=== PATIENT | male | born 2000 | race African-American/Black ===

== ENCOUNTER 2025-07-15 20:42 | Emergency (ER) | payer MEDICAID, SELFPAY ==
[2025-07-15 20:44] VITALS: BP 141/96
[2025-07-15 21:02] LABS: Hematocrit 44.6 % (39.0-52.0); Hemoglobin 15.2 g/dL (13.0-18.0); Mean Corp Hgb Conc. 34.1 g/dL (33.0-37.0); Mean Corpuscular Volume 79.6 fL (80.0-94.0); Nucleated Red Blood Cells % 0 % (-); Platelet Count 174 10^3/uL (130-400); Red Cell Dist. Width 11.9 % (11.5-14.5)
[2025-07-15 21:21] LABS: ALT (SGPT) 13 U/L (0-50); AST (SGOT) 22 U/L (17-59); Albumin 4.8 g/dl (3.5-5.0); Alkaline Phosphatase 51 U/L (38-126); Blood Urea Nitrogen 12 mg/dl (9-20); Calcium 10.0 mg/dl (8.4-10.2); Carbon Dioxide 29 mmol/L (22-30); Chloride 102 mmol/L (98-107); Glucose 100 mg/dl (70-99); Potassium 3.9 mmol/L (3.5-5.1); Sodium 139 mmol/L (135-145); Total Protein 8.3 g/dl (6.3-8.2); eGFR > 60.00
[2025-07-15 21:34] LABS: Urine Character Clear (Clear)
[2025-07-15 21:41] LABS: Urine Squamous Cell 0-2 /LPF (Few)
[2025-07-15 21:42] LABS: Urine White Cell 26-30 /HPF (0-5)
[2025-07-15] MEDS: TYLENOL 650 MG PO (22:10)
--- NOTE | 2025-07-16 00:23 | ED.GENMED ---
History of Present Illness
General
Chief Complaint: Headache
Time Seen by Provider: 07/16/25 00:09
Nursing documentation reviewed up to this point in time: agreed with
History of Present Illness
History of Present Illness:
25-year-old male presents to the ER for evaluation of 4 days of lower back discomfort along with dysuria and hesitancy with initiation of urination. Patient denies any recent sexual partners. He denies penile discharge. He denies testicular
discomfort. He also reports that his eyes have been red and irritated along with having a headache. He denies joint pain. Patient had been seen at another ER 2 days ago and had workup which he is able to show me on his phone-normal urinalysis,
negative GC and Chlamydia testing. He denies fever. He took some Tylenol on arrival to the ER today and had some improvement in his symptoms.
Review of Systems
Review of Systems
Allergies reviewed?: Yes
Phy Exam
Physical Exam
Physical Exam:
Patient is awake, alert, appears in no acute distress, head is NCAT, PERRL, EOMI mucous membranes moist, conjunctiva pink, BL sclera injected, no photophobia, heart regular rate and rhythm without murmurs or ectopy, lungs are clear to auscultation
without wheezes rales or rhonchi, no JVD, abdomen is soft and nontender on palpation, penis is circumcised, clear discharge noted at urethral meatus, no rashes seen, testicles are nontender on palpation, extremities without edema, GCS is 15
Course
Orders/Labs/Results
Orders:
Orders
07/15/25 20:56
Complete Blood Count/With Diff Urgent
Comprehensive Metabolic Panel Urgent
Urinalysis Reflex To Culture Urgent
Date Specimen was Collected: 07/15/25
Time Specimen was Collected: 20:50
Urine Microscopic Reflex Cult Urgent
Urine Culture Urgent
CINDY Source: U
Specimen Description:
Date Specimen was Collected: 07/15/25
Time Specimen was Collected: 20:50
07/15/25 22:07
Acetaminophen [Tylenol] 650 mg .ROUTE .STK-MED ONE
07/15/25 22:10
Acetaminophen [Tylenol] 650 mg PO NOW STA
07/16/25 00:19
CT Abd/pel Without Iv Or Oral Urgent
Comment:
Reason For Exam: dysuria, flank pain
07/16/25 00:24
Chlamydia/GC by PCR Urgent
CINDY Source: Urine
Specimen Description:
Source:: URETHRA
Date Specimen was Collected: 07/15/25
Time Specimen was Collected: 20:55
07/16/25 00:26
0.9% Sodium Chloride 1000 ml [Nss] 1,000 ml IV BOLUS
Ketorolac [Toradol] 15 mg IV NOW STA
07/16/25 00:33
Add On - Microbiology Urgent
Tests Added?: chlamydia/GC via PCR.
07/16/25 01:25
CefTRIAXone [Rocephin] 1,000 mg IV NOW STA
Doxycycline [Vibramycin] 100 mg PO NOW STA
Abnormal Lab Results
07/15/25
20:56
WBC 3.9 L 10^3/uL
(4.8-10.8)
MCV 79.6 L fL
(80.0-94.0)
MPV 11.2 H fL
(7.4-10.4)
Eosinophils % 9.4 H %
(0-6)
Glucose 100 H mg/dl
(70-99)
Total Protein 8.3 H g/dl
(6.3-8.2)
Ur Occult Blood Reflex 1+ A
(Negative)
Leukocyte Esterase Rfl 2+ A
(Negative)
Urine RBC 3-6 A /HPF
(0-2)
Urine WBC (Reflex) 26-30 A /HPF
(0-5)
Urine Bacteria (Reflex) Few A
(Negative)
Urine Albumin (Reflex) 2+ A
(Neg - Trace)
07/15/25 20:56
07/15/25 20:56
Urinalysis is concerning for infection, CBC reassuring, electrolytes within normal limits
Vital Signs
Initial and Last Documented VS:
Initial Vital Signs
Temp Pulse Resp BP Pulse Ox
98.2 F 71 16 141/96 98
07/15/25 20:44 07/15/25 20:44 07/15/25 20:44 07/15/25 20:44 07/15/25 20:44
Last Documented Vital Signs
Temp Pulse Resp BP Pulse Ox
98.2 F 71 16 141/96 98
07/15/25 20:44 07/15/25 20:44 07/15/25 20:44 07/15/25 20:44 07/16/25 00:24
MDM/Problems Addressed
Differential Diagnosis Includes:
Differential diagnosis to consider but not limited to GC chlamydia with Sherif's syndrome, urethritis, renal colic, viral syndrome along with other etiologies considered
*Pulse Oximetry
SaO2: 98
Oxygen Mode of Delivery: Room air
Patient hypoxic: no
*Critical Care Note
Total Time (30-74mins, 75-104mins- exclusive of procedures): Not Applicable
Update Note
Update Note:
I reviewed patient's test results with him from today along with previous ER visit. Urinalysis here looks very different than urinalysis obtained at outside hospital. I discussed with patient clinical concern specifically for chlamydia given his
overall picture. Will obtain additional sample from his urethra of discharge for evaluation. Will also obtain CT scan to rule out kidney stone given complaint of back pain in association with dysuria. Will give dose of Toradol along with IV
fluids. Patient agrees with plan at current.
0130: Patient resting comfortably. I reviewed all test results with patient and mom now present at bedside. I discussed with him still clinical concern for chlamydia as etiology of symptoms given urethritis and conjunctivitis. I discussed with
him treatment of same. Repeat GC chlamydia sent. I discussed with him strict return precautions should his symptoms fail to improve. Patient and mom feel comfortable with this plan and have no questions at the current time. Will give Rocephin
and first dose Doxy prior to discharge. They expressed understanding of need to complete treatment course.
ED Attending Note
-
Portions of this chart may have been created with voice recognition software.� Occasional wrong word or��sound alike� substitutions may have occurred due to the inherent limitations of voice recognition software.
Discharge Plan
Departure
Patient Disposition: Home (Routine Discharge)
Date of Disposition: 07/16/25
Time of Disposition: 01:26
Patient with high blood pressure during this ER visit?: No
Discharge Problem:
Bacterial urethritis
Instructions: Urethritis (DC)
Prescriptions:
New
doxycycline hyclate 100 mg capsule
100 mg PO BID Qty: 14 0RF
Referrals:
UNKNOWN - PT DOES,NOT KNOW [Family Provider]
Activity Restrictions/Additional Instructions:
Complete course of antibiotics as prescribed. Continue using Tylenol and ibuprofen as available [id number] as needed for discomfort. If you are not feeling significantly better in 48 hours please return to the ER or see your family physician
for further evaluation and care. Please abstain from any sexual activity until you have completed antibiotics.
Interventions
Interventions:
*Risk Screen - Suicide Last Done: 07/15/25 20:44
Discharge Date and Time
Print Language: MALTESE
[2025-07-16] MEDS: NSS 1000 IV (01:01)
[2025-07-16] MEDS: TORADOL 15 MG IV (01:02)
[2025-07-16] MEDS: VIBRAMYCIN 100 MG PO (01:47)
[2025-07-16] MEDS: ROCEPHIN 1000 MG IV (01:47)
== END 2025-07-16 02:09 | disposition home or self-care (01) ==
LOC: EMR 20:42
PROVIDERS: Emergency Medicine; EMERGENCY PHYSICIAN Emergency Medicine
DX: N34.2 Other urethritis (principal); B96.89 Other specified bacterial agents as the cause of diseases classified elsewhere; R51.9 Headache, unspecified; M54.50 Low back pain, unspecified
CPT/HCPCS: 99284; 96374; 96375; 96361; 74176; 80053; 81003; 81015; 85025; 87086; 87491; 87591